=== PATIENT | female | born 1990 ===

== ENCOUNTER 2017-08-23 12:15 | Emergency (ER) | payer OTHER ==
[~2017-08-23] VITALS: Ht 160 cm; Wt 89.4 kg
== END 2017-08-23 15:55 | disposition home or self-care (01) ==
LOC: ER 12:15
DX: M25.571 Pain in right ankle and joints of right foot (principal); G89.11 Acute pain due to trauma; S93.401S Sprain of unspecified ligament of right ankle, sequela; X50.3XXS Overexertion from repetitive movements, sequela